=== PATIENT | female | born 1980 | race Caucasian/White ===

== ENCOUNTER → 2019-01-27 | Outpatient (CLI) | payer OTHER | END | disposition home or self-care (01) | LOC: LABWHC1 07:55 | PROVIDERS: ATTEND Obstetrics & Gynecology | DX: Z34.00 Encounter for supervision of normal first pregnancy, unspecified trimester (principal) | CPT/HCPCS: 36415; 84702; 86850; 86900; 86901 ==

== ENCOUNTER → 2019-01-30 | Outpatient (CLI) | payer OTHER | END | disposition home or self-care (01) | LOC: LABWHC1 15:09 | PROVIDERS: ATTEND Obstetrics & Gynecology | DX: Z34.00 Encounter for supervision of normal first pregnancy, unspecified trimester (principal) | CPT/HCPCS: 36415; 84702 ==

== ENCOUNTER → 2019-02-01 | Outpatient (CLI) | payer OTHER | END | disposition home or self-care (01) | LOC: LABWHC1 16:01 | PROVIDERS: ATTEND Obstetrics & Gynecology | DX: O20.9 Hemorrhage in early pregnancy, unspecified (principal); Z3A.00 Weeks of gestation of pregnancy not specified | CPT/HCPCS: 36415; 84702 ==

== ENCOUNTER → 2019-02-02 | Outpatient (CLI) | payer OTHER ==
[2019-02-02 14:23] LABS: HCT 41.2 % (34.0-46.0); HGB 13.4 gm/dL (11.4-16.0); MCHC 32.5 g/dL (31.0-37.0); Mean Platelet Volume 6.9; Platelet Count 327 k/uL (150-450); RBC 4.63 m/uL (3.80-5.40); RDW 13.1 % (11.5-15.5); WBC 9.7 k/uL (3.8-10.6)
[2019-02-02 18:58] LABS: African American GFR (CKD) 129.2 (60.0-200.0); Albumin 4.6 g/dL (3.80-4.90); Albumin/Globulin Ratio 2.3 (1.60-3.17); Anion Gap 7.6 mmol/L (4.00-12.00); BUN/Creat Ratio 12.86 Ratio (12.00-20.00); Calcium 9.4 mg/dL (8.7-10.3); Carbon Dioxide 26.4 mmol/L (21.6-31.8); Total Bilirubin 0.6 mg/dL (0.3-1.2); Total Protein 6.6 g/dL (6.2-8.2)
[2019-02-02 19:04] LABS: HCG,Quantitative Serum 452.7 mIU/mL
== END | disposition home or self-care (01) ==
LOC: LABWHC1 13:04
PROVIDERS: ATTEND Obstetrics & Gynecology
DX: O00.90 Unspecified ectopic pregnancy without intrauterine pregnancy (principal)
CPT/HCPCS: 36415; 80053; 84702; 85027

== ENCOUNTER → 2019-02-02 | Outpatient (CLI) | payer OTHER ==
[~2019-02-02] MED LIST: METHOTREXATE SODIUM (PF) 25 MG/ML 2 ML VIAL IM ONE
[2019-02-02 15:13] VITALS: BP 142/84; PULSE 102; RESP 16; TEMP 98.1
== END | disposition home or self-care (01) ==
LOC: PROCWHC3 15:02
PROVIDERS: ATTEND Obstetrics & Gynecology
DX: O00.90 Unspecified ectopic pregnancy without intrauterine pregnancy (principal)
CPT/HCPCS: 96402; J9260

== ENCOUNTER → 2019-02-08 | Outpatient (CLI) | payer OTHER | END | disposition home or self-care (01) | LOC: LABWHC1 17:22 | PROVIDERS: ATTEND Obstetrics & Gynecology | DX: O00.90 Unspecified ectopic pregnancy without intrauterine pregnancy (principal) | CPT/HCPCS: 36415; 84702 ==

== ENCOUNTER → 2019-02-16 | Outpatient (CLI) | payer OTHER | END | disposition home or self-care (01) | LOC: LABWHC1 14:31 | PROVIDERS: ATTEND Obstetrics & Gynecology | DX: O00.90 Unspecified ectopic pregnancy without intrauterine pregnancy (principal) | CPT/HCPCS: 36415; 84702 ==

== ENCOUNTER → 2019-05-02 | Outpatient (CLI) | payer OTHER | END | disposition home or self-care (01) | LOC: LABWHC1 12:55 | PROVIDERS: ATTEND Obstetrics & Gynecology | DX: Z34.81 Encounter for supervision of other normal pregnancy, first trimester (principal); Z3A.00 Weeks of gestation of pregnancy not specified | CPT/HCPCS: 36415; 84702 ==

== ENCOUNTER → 2019-05-04 | Outpatient (CLI) | payer OTHER | END | disposition home or self-care (01) | LOC: LABWHC1 13:59 | PROVIDERS: ATTEND Obstetrics & Gynecology | DX: Z34.81 Encounter for supervision of other normal pregnancy, first trimester (principal) | CPT/HCPCS: 36415; 84702 ==

== ENCOUNTER → 2022-03-27 | Outpatient (CLI) | payer OTHER ==
[2022-03-27 16:37] LABS: Creatinine,Urine Random 12.6 mg/dL; Protein/Creatinine Ratio,Urine 0.952
[2022-03-27 22:41] LABS: African American GFR (CKD) 133.1 (60.0-200.0); HCT 36.9 % (37.2-46.3); HGB 12.1 g/dL (12.0-15.0); MCH 29.9 pg (27.0-32.0); MCHC 32.8 g/dL (32.0-37.0); MCV 91.1 fL (80.0-97.0); Mean Platelet Volume 9.8 fL (9.5-12.2); NRBC Per 100 WBC 0 /100 WBCS (0.0-0.0); Non-African American GFR(CKD) 114.8 (60.0-200.0); Platelet Count 352 X 10*3/uL (140-440); RBC 4.05 X 10*6/uL (4.10-5.20); RDW 12.6 % (11.5-14.5); WBC 13.37 X 10*3/uL (4.50-10.00)
== END | disposition home or self-care (01) ==
LOC: LABWHC1 13:57
PROVIDERS: ATTEND Advanced Practice Midwife
DX: R03.0 Elevated blood-pressure reading, without diagnosis of hypertension (principal)
CPT/HCPCS: 36415; 82565; 82570; 83615; 84156; 84450; 84460; 85027

== ENCOUNTER 2022-07-16 06:20 | Inpatient (IN) | payer OTHER ==
--- NOTE | 2022-07-15 16:57 | P.HPOB ---
History of Present Illness H&P Date: 07/15/22 Chief Complaint: IUGR This is a 41 y.o. female, 2, para 0, with an estimated date of confinement of 07/25/2022, estimated gestational age of 38-5/7 weeks, who presents for induction of labor due to intrauterine growth restriction. She was seen by MFM on 07/15/2022 and US showed estimated weight of 5#15oz (9th percentile) with abdominal circumference at 4th percentile. BPP was 10/10 and dopplers were normal. She did have pre-eclamptic workup due to persistent headache that was all normal also. She was seeing MFM for advanced maternal age, gestational diabetes-on insulin, and alcohol and marijuana use during . labs: GC/Chlamydia/Trich-neg Hepatitis B surface antigen-neg RPR-NR Rubella-immune Blood type-A+ Antibody screen-neg HIV-NR Hemoglobin-14.1 Random glucose-78 [id number]-ljo, boy 1 hr. GTT-135, 3 hr. GTT-abnormal GBS-neg OB Hx: . History of 1 ectopic, treated with Methotrexate. 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 Review of Systems Constitutional: Denies chills, Denies fever Eyes: denies blurred vision, denies pain Cardiovascular: Denies chest pain, Denies shortness of breath Respiratory: Denies cough Gastrointestinal: Reports abdominal pain (irregular contractions) Genitourinary: Reports pelvic pain, Reports Musculoskeletal: Reports low back pain Neurological: Reports headaches (persistent last couple days), Denies numbness, Denies weakness Psychiatric: Reports anxiety Past Medical History Past Medical History: Hypertension (no current meds) Additional Past Surgical History / Comment(s): LEEP; removal of benign cyst on back of neck Past Anesthesia/Blood Transfusion Reactions: No Reported Reaction Past Psychological History: ADD/ADHD, Anxiety, Depression Smoking Status: Current every day smoker, Vaper Past Alcohol Use History: Heavy (Quit at about 23 weeks ) Past Drug Use History: Marijuana - Past Family History Sister(s) Additional Family Medical History / Comment(s): psychosis Medications and Allergies Home Medications Medication Instructions Recorded Confirmed Type Dextroamphetamine/Amphetamine 30 mg PO DAILY 07/15/22 07/15/22 History [Adderall] Insulin Glargine,Hum.rec.anlog 10 units SQ HS 07/15/22 07/15/22 History [Lantus Solostar Pen] Vit No.179/Iron/Folic 1 each PO 07/15/22 History [ Tablet] Allergies Allergy/AdvReac Type Severity Reaction Status Date / Time prochlorperazine Allergy Anaphylaxis Verified 02/02/19 15:08 [From Compazine] Exam Osteopathic Statement: *. No significant issues noted on an osteopathic structural exam other than those noted in the History and Physical/Consult. HEENT: within normal limits Heart: regular rate and rhythm Lungs: clear to auscultation bilaterally Abdomen: , non-tender Cervix: 1 cm/60%/-1 heart tones: 140's by doppler Extremities: Neg. Mamadou's Assessment and Plan (1) 38 weeks gestation of Status: Acute Code(s): Z3A.38 - 38 WEEKS GESTATION OF SNOMED Code(s): 93507443 (2) Intrauterine growth restriction (IUGR) affecting care of mother, third trimester, single gestation Status: Acute Code(s): O36.5930 - MATERN CARE FOR OTH OR SUSP POOR FETL GRTH, THIRD TRI, UNSP SNOMED Code(s): 806182083 (3) Gestational diabetes mellitus (GDM) Status: Acute Code(s): O24.419 - GESTATIONAL DIABETES MELLITUS IN , UNSP CONTROL SNOMED Code(s): 97086741 (4) Advanced maternal age (AMA) in Status: Acute Code(s): JFG0913 - SNOMED Code(s): 277723592 Plan: Proceed with oxytocin induction of labor. Expectant management. Epidural anesthesia if desired. Will monitor blood sugars during labor.
[2022-07-16] MEDS ORDERED: TRANEXAMIC ACID IN NACL,ISO-OS 1,000 MG in EMPTY BAG 1 BAG IV PRN (06:31)
[2022-07-16] MEDS ORDERED: CARBOPROST TROMETHAMINE 250 MCG/ML 1 ML AMP IM PRN (06:31)
[2022-07-16] MEDS ORDERED: OXYTOCIN 30 UNITS/500 ML NS 30 UNIT in SALINE 1 500ML.BAG IV SCH ×2 (06:31→15:45)
[2022-07-16] MEDS ORDERED: LIDOCAINE 0.5% (PF) 5 MG/ML (50 ML SDV) SQ PRN (06:31)
[2022-07-16] MEDS ORDERED: TERBUTALINE 1 MG/ML VIAL SQ PRN (06:31)
[2022-07-16] MEDS ORDERED: LIDOCAINE 1% (10MG/ML) FOR IV START INTRADERMA PRN (06:31)
[2022-07-16] MEDS ORDERED: miSOPROStoL 200 MCG TAB PO PRN (06:31)
[2022-07-16] MEDS ORDERED: METHYLERGONOVINE 0.2 MG/ML 1 ML AMP IM PRN (06:31)
[2022-07-16] MEDS ORDERED: OXYTOCIN 10 UNIT/ML 1 ML VIAL IM PRN (06:31)
[2022-07-16] MEDS: LACTATED RINGERS 1,000 ML IV SCH ×2 (07:00→11:17)
[2022-07-16 07:04] LABS: Glucose,Whole Blood 107 mg/dL (70-110)
[2022-07-16 07:16] LABS: Basophils # (A) 0.1 k/uL (0-0.2); Basophils % (A) 1 %; Eosinophils # (A) 0.2 k/uL (0-0.7); Eosinophils % (A) 1 %; HCT 38.1 % (34.0-46.0); HGB 13.7 gm/dL (11.4-16.0); Lymphocytes # (A) 2.4 k/uL (1.0-4.8); Lymphocytes % (A) 19 %; MCH 30.8 pg (25.0-35.0); MCV 85.5 fL (80.0-100.0); Mean Platelet Volume 7.7; Monocytes # (A) 0.5 k/uL (0-1.0); Monocytes % (A) 4 %; Neutrophils % (A) 73 %; Platelet Count 303 k/uL (150-450); RBC 4.45 m/uL (3.80-5.40); RDW 13.9 % (11.5-15.5); WBC 12.3 k/uL (3.8-10.6)
[2022-07-16 09:03] LABS: Glucose,Whole Blood 73 mg/dL (70-110)
[2022-07-16 10:11] LABS: Glucose,Urine (UA) Negative (Negative); Ketones,Urine Negative (Negative); Protein,Urine Negative (Negative)
[2022-07-16 10:53] LABS: Amphetamine Screen,Urine Detected (NotDetected); Barbiturate Screen,Urine Not Detected (NotDetected); Benzodiazepines Screen,Urine Not Detected (NotDetected); Cocaine Screen,Urine Not Detected (NotDetected); Methadone Screen, Urine Not Detected (NotDetected); Opiate Screen,Urine Not Detected (NotDetected); Oxycodone Screen, Urine Not Detected (NotDetected); Phencyclidine Screen,Urine Not Detected (NotDetected); Tricyclic Antidepressant,Urine Not Detected (NotDetected); Urn Cannabinoid Scrn Not Detected (NotDetected)
[2022-07-16] MEDS ORDERED: fentaNYL (PF) 50 MCG/ML 5 ML AMP ONE (11:17)
[2022-07-16] MEDS ORDERED: SODIUM CHLORIDE 0.9% 100 ML BAG ONE (11:17)
[2022-07-16] MEDS ORDERED: BUPIVACAINE (PF) 0.25% 30 ML VIAL ONE (11:17)
[2022-07-16 11:35] LABS: Glucose,Whole Blood 74 mg/dL (70-110)
[2022-07-16] MEDS ORDERED: ROPIVACAINE 100 MG, fentaNYL (PF). 200 MCG in SODIUM CHLORIDE 0.9% 76 ML EPIDURAL ONE (11:50)
[2022-07-16 13:39] LABS: Glucose,Whole Blood 67 mg/dL (70-110)
[2022-07-16] MEDS ORDERED: LANOLIN CREAM 5 GM TUBE TOPICAL PRN (15:44)
[2022-07-16] MEDS ORDERED: HYDROCORTISONE 2.5% RECTAL CREAM 30 GM TUBE RECTAL PRN (15:44)
[2022-07-16] MEDS ORDERED: SIMETHICONE 80 MG CHEWABLE PO PRN (15:44)
[2022-07-16] MEDS ORDERED: diphenhydrAMINE 50 MG CAP PO PRN (15:44)
[2022-07-16] MEDS ORDERED: ZOLPIDEM 5 MG TAB PO PRN (15:44)
[2022-07-16] MEDS ORDERED: diphenhydrAMINE 50 MG/ML 1 ML VIAL IVP PRN ×2 (15:44)
[2022-07-16] MEDS ORDERED: BENZOCAINE/MENTHOL SPRAY 1 GM/SPRAY AEROSOL TOPICAL PRN (15:44)
[2022-07-16] MEDS ORDERED: diphenhydrAMINE 25 MG CAP PO PRN (15:44)
--- NOTE | 2022-07-16 18:32 | P.PROBDLV ---
Vaginal Delivery Note - . Vaginal Delivery Note: The patient progressed to complete dilation after oxytocin induction of labor and artificial rupture membranes with clear fluid noted. She did receive epidural anesthesia. Once reaching complete, she began pushing but then did start to have deep decelerations to the 60s. Oxytocin was turned off and she was given oxygen. She was placed on her side. Heart tones did resolve. I came to the bedside and put a scalp electrode on. I continued pushing with her since she had good pushing efforts and was occurring. She did have to push approximately every other contraction to let baby recover. She reached a crown and then with one further push was able to deliver the infant's head followed by the anterior shoulder. Nose and mouth were bulb suctioned. Nuchal cord times one was reduced around the infant's head and one further push the infant delivered and was placed on mother's abdomen. Nose and mouth were bulb suctioned again and then cord was clamped and cut. A viable male was noted with scores of 9 at 1 minute and 9 at 5 minutes and weight of 5 lbs. 10 oz. Placenta delivered shortly thereafter, intact, with a three- vessel cord. Uterus contracted fairly well after oxytocin was given and uterine massage was carried out. Inspection of the perineum revealed a second degree perineal laceration and a right periurethral laceration. She also had a left periurethral abrasion noted. These areas were anesthetized with 1% lidocaine and then sutured in the usual multilayer fashion. Estimated blood loss is approximately 200 mL's. Both mother and are in stable condition.
[2022-07-16] MEDS: SENNOSIDES-DOCUSATE SODIUM 1 EACH TAB PO SCH (19:36)
[2022-07-16] MEDS: IBUPROFEN 600 MG TAB PO PRN (19:36)
[2022-07-16] MEDS: ACETAMINOPHEN TAB 325 MG TAB PO PRN (21:40)
[2022-07-17] MEDS: IBUPROFEN 600 MG TAB PO PRN ×2 (07:38→16:02)
[2022-07-17 08:47] LABS: Basophils # (A) 0.1 k/uL (0-0.2); Basophils % (A) 0 %; Eosinophils # (A) 0.2 k/uL (0-0.7); Eosinophils % (A) 1 %; HCT 34.3 % (34.0-46.0); HGB 11.6 gm/dL (11.4-16.0); Lymphocytes # (A) 1.7 k/uL (1.0-4.8); Lymphocytes % (A) 15 %; MCH 29.3 pg (25.0-35.0); MCHC 33.8 g/dL (31.0-37.0); MCV 86.6 fL (80.0-100.0); Mean Platelet Volume 7.8; Monocytes # (A) 0.3 k/uL (0-1.0); Monocytes % (A) 3 %; Neutrophils # (A) 9.2 k/uL (1.3-7.7); Neutrophils % (A) 79 %; Platelet Count 264 k/uL (150-450); RBC 3.97 m/uL (3.80-5.40); RDW 13.9 % (11.5-15.5); WBC 11.6 k/uL (3.8-10.6)
[2022-07-17] MEDS ORDERED: PRENATAL VIT-IRON-FOLIC ACID 1 EACH TABLET PO SCH (09:00)
[2022-07-17] MEDS ORDERED: FAMOTIDINE 20 MG TAB PO SCH (09:00)
--- NOTE | 2022-07-17 09:03 | P.PNOBGVD ---
Subjective - Subjective Principal diagnosis: Status post vaginal delivery day #1 Interval history: Patient feels well today. She is breast-feeding. Lochia is decreasing. Her pain is fairly well controlled. She is still slightly anxious about carrying for her child. Her blood pressures have been slightly elevated throughout the day yesterday but are starting to trend downward today. She denies any headaches or blurry vision. Patient reports: Reports appetite normal, Reports voiding normally, Reports pain well controlled, Reports ambulating normally : doing well, nursing well Objective - Latest Vital Signs Latest vital signs: Vital Signs Temp Pulse Resp BP 07/17/22 04:00 97.9 F 71 16 142/82 07/17/22 00:00 98.4 F 80 16 157/87 07/16/22 19:37 98.4 F 81 16 157/96 07/16/22 17:25 93 16 157/84 07/16/22 16:25 105 H 16 134/102 07/16/22 16:10 90 16 161/94 07/16/22 15:55 97.0 F L 78 16 142/91 07/16/22 15:40 85 16 149/92 07/16/22 15:25 83 16 145/97 Intake and Output 07/16/22 07/17/22 07/17/22 22:59 06:59 14:59 Intake Total 181.8 Output Total 325 Balance -143.2 Intake: Intake, IV Titration 181.8 Amount Oxytocin 30 Units/500 ml 181.8 Ns 30 unit In Saline 1 500ml.bag @ Per Protocol IV .Q0M [facility] Rx#:[id number] Output: Estimated Blood Loss 200 Output, Quantitative 125 Blood Loss Other: # Voids 1 - Exam Extremities: Present: normal. Absent: tenderness Abdomen: Present: normal appearance, soft. Absent: distention, tenderness Uterus: Present: normal, firm. Absent: tenderness - Labs Labs: Abnormal Lab Results - Last 24 Hours (Table) 07/16/22 07/16/22 07/17/22 Range/Units 09:49 13:37 08:13 WBC 11.6 H (3.8-10.6) k/uL Neutrophils # 9.2 H (1.3-7.7) k/uL POC Glucose (mg/dL) 67 L (70-110) mg/dL Ur Amphetamines Screen Detected H (NotDetected) Assessment and Plan Assessment: Status post vaginal delivery day #1 Gestational hypertension -most likely related to anxiety, trending downward. (1) 38 weeks gestation of Current Visit: No Status: Acute Code(s): Z3A.38 - 38 WEEKS GESTATION OF SNOMED Code(s): 73397863 (2) Intrauterine growth restriction (IUGR) affecting care of mother, third trimester, single gestation Current Visit: No Status: Acute Code(s): O36.5930 - MATERN CARE FOR OTH OR SUSP POOR FETL GRTH, THIRD TRI, UNSP SNOMED Code(s): 345023170 (3) Gestational diabetes mellitus (GDM) Current Visit: No Status: Acute Code(s): O24.419 - GESTATIONAL DIABETES MELLITUS IN , UNSP CONTROL SNOMED Code(s): 62208993 (4) Advanced maternal age (AMA) in Current Visit: No Status: Acute Code(s): [id number] - SNOMED Code(s): 177191155 Plan: Will monitor 1 more day to continue to monitor her blood pressures. If her blood pressure stays stable, will anticipate discharge home tomorrow. Dr. Pagan will be covering this weekend.
[2022-07-17] MEDS: ACETAMINOPHEN TAB 325 MG TAB PO PRN (11:16)
[2022-07-17] MEDS: SENNOSIDES-DOCUSATE SODIUM 1 EACH TAB PO SCH ×2 (11:18→20:00)
[2022-07-17] MEDS: NON FORMULARY DRUG (Dextroamphetamine/Amphetamine [Adderall] 15 MG Tablet) PO SCH (19:21)
[2022-07-17 20:33] VITALS: RESP 14
[2022-07-18] MEDS: ACETAMINOPHEN TAB 325 MG TAB PO PRN (02:57)
--- NOTE | 2022-07-18 06:55 | P.DS ---
Providers Date of admission: 07/16/22 06:20 Expected date of discharge: 07/18/22 Attending physician: Gisele Aguirre Primary care physician: Stated None - Discharge Diagnosis(es) (1) Normal vaginal delivery Current Visit: Yes Status: Acute Hospital Course: patient presented for induction of labor and underwent a normal vaginal delivery. course was complicated by some higher blood pressures. She seems to be holding at 150/90. She denies any signs or symptoms of preeclampsia. Her labs were all normal. Patient will be discharged home postpa rtum day #2 to follow-up with Dr. Aguirre in one week for blood pressure check. Plan - Discharge Summary New Discharge Prescriptions: New Ibuprofen [Motrin] 600 mg PO Q6HR PRN #30 tab PRN Reason: Mild Pain (Scale 1 To 3) No Action Insulin Glargine,Hum.rec.anlog [Lantus Solostar Pen] 10 units SQ HS Famotidine [Pepcid] 10 mg PO DAILY Dextroamphetamine/Amphetamine [Adderall] 30 mg PO DAILY Vit No.179/Iron/Folic [ Tablet] 1 each PO DAILY Discharge Medication List Dextroamphetamine/Amphetamine [Adderall] 30 mg PO DAILY 07/15/22 [History] Insulin Glargine,Hum.rec.anlog [Lantus Solostar Pen] 10 units SQ HS 07/15/22 [History] Vit No.179/Iron/Folic [ Tablet] 1 each PO DAILY 07/15/22 [History] Famotidine [Pepcid] 10 mg PO DAILY 07/16/22 [History] Ibuprofen [Motrin] 600 mg PO Q6HR PRN #30 tab 07/18/22 [Rx] Follow up Appointment(s)/Referral(s): Gisele Aguirre DO [Doctor of Osteopathic Medicine] - 08/26/22 4:00 pm Discharge Disposition: HOME SELF-CARE
[2022-07-18] MEDS: IBUPROFEN 600 MG TAB PO PRN (08:23)
[2022-07-18] MEDS: SENNOSIDES-DOCUSATE SODIUM 1 EACH TAB PO SCH (08:25)
[2022-07-18 09:11] VITALS: BP 164/97; PULSE 74; TEMP 98
[2022-07-18] MEDS: NON FORMULARY DRUG (Dextroamphetamine/Amphetamine [Adderall] 15 MG Tablet) PO SCH (14:05)
== END 2022-07-18 14:38 | disposition home or self-care (01) | DRG 806 ==
LOC: 4FBP 06:20
PROVIDERS: ADMIT Obstetrics & Gynecology; ATTEND Obstetrics & Gynecology
PROC: 3E033VJ Introduction of Other Hormone into Peripheral Vein, Percutaneous Approach (ICD-10-PCS; principal; 2022-07-16)
PROC: 10907ZC Drainage of Amniotic Fluid, Therapeutic from Products of Conception, Via Natural or Artificial Opening (ICD-10-PCS; principal; 2022-07-16)
PROC: 10E0XZZ Delivery of Products of Conception, External Approach (ICD-10-PCS; principal; 2022-07-16)
DX: O36.5930 Maternal care for other known or suspected poor fetal growth, third trimester, not applicable or unspecified (principal); O99.324 Drug use complicating childbirth; Z37.0 Single live birth; O69.81X0 Labor and delivery complicated by cord around neck, without compression, not applicable or unspecified; O24.429 Gestational diabetes mellitus in childbirth, unspecified control; O16.4 Unspecified maternal hypertension, complicating childbirth; O71.82 Other specified trauma to perineum and vulva; O70.1 Second degree perineal laceration during delivery; O99.334 Smoking (tobacco) complicating childbirth; F17.290 Nicotine dependence, other tobacco product, uncomplicated; O99.344 Other mental disorders complicating childbirth; F90.9 Attention-deficit hyperactivity disorder, unspecified type; F41.9 Anxiety disorder, unspecified; F32.A Depression, unspecified; O99.314 Alcohol use complicating childbirth; Z3A.38 38 weeks gestation of pregnancy; R51.9 Headache, unspecified; Z81.8 Family history of other mental and behavioral disorders; Z79.4 Long term (current) use of insulin; Z79.899 Other long term (current) drug therapy
CPT/HCPCS: 80306; 81003; 83036; 85025; 86850; 86900; 86901; 88307

== ENCOUNTER → 2024-10-13 | Outpatient (CLI) | payer OTHER ==
--- NOTE | 2024-10-13 14:37 | MM ---
Reason for Exam: Screening (asymptomatic). Baseline mammogram. Patient History: Menarche at age 13. First Full-Term at age 41. Late child-bearing (after 30). Premenopausal. Patient has history of breast feeding. Last menstrual period: 10/01/2024 Risk Values: Sarah 5 year model risk: 1.0%. NCI Lifetime model risk: 14.6%. Prior Study Comparison: Patient's first Mammogram. Tissue Density: The breasts are heterogeneously dense, which may obscure small masses. Findings: Analyzed By CAD. There is no suspicious group of microcalcifications or new suspicious mass in either breast. Overall Assessment: Benign, BI-RAD 2 Management: Screening Mammogram of both breasts in 1 year. . Patient should continue monthly self-breast exams. A clinical breast exam by your physician is recommended on an annual basis. This exam should not preclude additional follow-up of suspicious palpable abnormalities. Note on Sarah scores and lifetime risk: 1. A Sarah score greater than 3% is considered moderate risk. If this is the case, consider specialist referral to assess eligibility for a risk reducing agent. 2. If overall lifetime risk for the development of breast cancer is 20% or higher, the patient may qualify for future screening with alternating mammogram and breast MRI. [facility], , 10/13/2024 2:35 PM. Electronically signed and approved by: Yordy Baum M.D. Radiologis
== END | disposition home or self-care (01) ==
LOC: RADMAMWWP 14:04
PROVIDERS: ATTEND Family Medicine
DX: Z12.31 Encounter for screening mammogram for malignant neoplasm of breast (principal); R92.333 Mammographic heterogeneous density, bilateral breasts
CPT/HCPCS: 77067